=== PATIENT | female | born 1945 | race Asian ===

== ENCOUNTER 2022-06-10 01:06 | Inpatient (IN) | payer OTHER ==
[~2022-06-10] VITALS: Ht 149.9 cm; Wt 45.0 kg
[2022-06-10 01:41] LABS: GLUCOSE,POINT OF CARE 116 MG/DL (70-110)
[2022-06-10 01:42] LABS: HEMOGLOBIN 8.1 g/dL (12.0-16.0); MEAN CORPUSCULAR VOLUME 89 fL (80-100); RED CELL DISTRIBUTION WIDTH 14.4 % (11.5-14.5)
[2022-06-10 01:48] LABS: CALCIUM, TOTAL 9.9 mg/dL (8.8-10.5); CREATININE 1.35 mg/dL (0.60-1.30); POTASSIUM 4.3 mmol/L (3.5-5.1)
[2022-06-10 01:51] LABS: BASOPHILS % (AUTO) 0.7 % (0.0-2.0); EOSINOPHILS % (AUTO) 0.4 % (1.0-6.0); HEMATOCRIT 24.1 % (36-46); LYMPHOCYTES # (AUTO) 3.2 K/uL (1.0-4.8); LYMPHOCYTES % (AUTO) 33.4 % (22.0-44.0); MEAN CORPUSCULAR HEMOGLOBIN 29.8 pg (26.0-34.0); MEAN CORPUSCULAR HGB CONC 33.6 G/dL (31.0-37.0); MONOCYTES # (AUTO) 0.6 K/uL (0.1-1.0); MONOCYTES % (AUTO) 6.8 % (2.0-9.0); NEUTROPHILS # (AUTO) 5.6 K/uL (1.8-7.7); NEUTROPHILS % (AUTO) 58.7 % (40.0-70.0); PLATELET COUNT (AUTO) 548 K/uL (150-450); RED BLOOD CELL COUNT(AUTO) 2.72 MIL/uL (4.00-5.20)
[2022-06-10 01:56] LABS: LACTIC ACID 1.1 mmol/L (0.4-2.0)
[2022-06-10 01:58] LABS: COVID AG,FIA SOURCE NASAL SWAB
[2022-06-10 02:01] LABS: APPEARANCE,URINE HAZY (CLEAR); BILIRUBIN,URINE NEGATIVE (NEGATIVE); GLUCOSE, URINE (UA) NEGATIVE (NEGATIVE); KETONES,URINE NEGATIVE (NEGATIVE); LEUKOCYTE ESTERASE ,URINE LARGE (NEGATIVE); NITRATE,URINE NEGATIVE (NEGATIVE); OCCULT BLOOD,URINE NEGATIVE (NEGATIVE); PROTEIN,URINE 30-70 mg/dL (NEGATIVE); SPECIFIC GRAVITIY, URINE 1.034 (1.003-1.030); UROBILINOGEN,URINE <=1.0 mg/dL (<=1.0)
[2022-06-10 02:03] LABS: PROTHROMBIN TIME 10.9 SEC (9.4-11.6)
[2022-06-10 02:10] LABS: BACTERIA,URINE Few /HPF (None Seen); RBC,URINE 0-2 /HPF (0-2); SQUAMOUS EPITHELIAL CELL,UR Few /LPF (None Seen); WBC,URINE 26-50 /HPF (0-5); YEAST,URINE Moderate /HPF (None Seen)
[2022-06-10 02:16] LABS: ALBUMIN 2.6 g/dL (3.4-5.0); BILIRUBIN,TOTAL 0.3 mg/dL (0.1-1.0); TOTAL PROTEIN, SERUM 7.3 g/dL (6.4-8.2)
[2022-06-10] MEDS ORDERED: CefTRIAXone 1 GM/DEXTROSE 50 ML IV ONE (03:00)
[2022-06-10] MEDS ORDERED: NACL ISOOSM IV ONE (03:00)
[2022-06-10] MEDS ORDERED: FLUCONAZOLE IV ONE (03:00)
[2022-06-10] MEDS ORDERED: 0.9% SODIUM CHLORIDE 10 ML SYRINGE IVP PRN (03:00)
[2022-06-10] MEDS ORDERED: ACETAMINOPHEN 325 MG TABLET PO PRN ×2 (03:00→10:45)
[2022-06-10] MEDS ORDERED: SODIUM CHLORIDE 0.9% 1,000 ML IV ONE ×2 (03:00→10:45)
[2022-06-10 09:52] VITALS: BP 126/61
[2022-06-10] MEDS ORDERED: DEXTROSE 50%-WATER 25 GM/50 ML SYRINGE IVP PRN (10:45)
[2022-06-10] MEDS ORDERED: ONDANSETRON HCL 4 MG/2 ML VIAL IVP PRN (10:45)
[2022-06-10 11:30] LABS: GLUCOMETER DEV NAME(LOC) 6N.2B; GLUCOSE,POINT OF CARE 118 MG/DL (70-110)
[2022-06-10] MEDS ORDERED: DEXAMETHASONE SOD PHOS 4 MG/ML VIAL IVP ONE (12:00)
[2022-06-10] MEDS ORDERED: ROCURONIUM BROMIDE 10 MG/ML 5 ML VIAL IVP ONE (12:00)
[2022-06-10] MEDS ORDERED: LIDOCAINE/PF 2% 5 ML VIAL IM ONE (12:00)
[2022-06-10] MEDS ORDERED: PROPOFOL 1% 20 ML VIAL IVP ONE (12:00)
[2022-06-10] MEDS ORDERED: ONDANSETRON HCL 4 MG/2 ML VIAL IVP ONE (12:00)
[2022-06-10] MEDS ORDERED: APIXABAN 5 MG TABLET PEG SCH ×3 (13:45→21:00)
[2022-06-10 15:51] LABS: GLUCOMETER DEV NAME(LOC) 6N.1; GLUCOSE,POINT OF CARE 118 MG/DL (70-110)
[2022-06-10 16:02] LABS: HEMATOCRIT 22.3 % (36-46); HEMOGLOBIN 7.3 g/dL (12.0-16.0)
[2022-06-10 16:40] VITALS: BP 141/80
[2022-06-10] MEDS: PANTOPRAZOLE SODIUM 80 MG in SODIUM CHLORIDE 0.9% 100 ML IV SCH (18:17)
[2022-06-10 20:28] VITALS: BP 139/68
[2022-06-10] MEDS: DOCUSATE SODIUM 100 MG CAPSULE PO SCH (21:01)
[2022-06-10 21:51] LABS: GLUCOMETER DEV NAME(LOC) 5N.2C; GLUCOSE,POINT OF CARE 107 MG/DL (70-110)
[2022-06-10 23:07] VITALS: BP 135/65
[2022-06-11] VITALS (12 sets, daily range): BP systolic 124–167; BP diastolic 60–80
[2022-06-11 00:31] LABS: HEMATOCRIT 20.5 % (36-46); HEMOGLOBIN 6.9 g/dL (12.0-16.0)
[2022-06-11] MEDS ORDERED: SODIUM CHLORIDE 0.9% 250 ML IV ONE ×2 (00:33→06:33)
[2022-06-11] MEDS: PANTOPRAZOLE SODIUM 80 MG in SODIUM CHLORIDE 0.9% 100 ML IV SCH ×2 (01:52→11:15)
[2022-06-11] MEDS: CefTRIAXone 1 GM/DEXTROSE 50 ML IV SCH (02:23)
[2022-06-11] MEDS: FLUCONAZOLE 100 MG TABLET PO SCH ×2 (02:29→09:18)
[2022-06-11 07:27] LABS: BASOPHILS % (AUTO) 0.9 % (0.0-2.0); EOSINOPHILS % (AUTO) 1.3 % (1.0-6.0); HEMATOCRIT 24.1 % (36-46); HEMOGLOBIN 7.9 g/dL (12.0-16.0); LYMPHOCYTES # (AUTO) 2.2 K/uL (1.0-4.8); LYMPHOCYTES % (AUTO) 34.1 % (22.0-44.0); MEAN CORPUSCULAR HEMOGLOBIN 29.2 pg (26.0-34.0); MEAN CORPUSCULAR HGB CONC 32.9 G/dL (31.0-37.0); MEAN CORPUSCULAR VOLUME 89 fL (80-100); MONOCYTES # (AUTO) 0.4 K/uL (0.1-1.0); MONOCYTES % (AUTO) 6.8 % (2.0-9.0); NEUTROPHILS # (AUTO) 3.6 K/uL (1.8-7.7); NEUTROPHILS % (AUTO) 56.9 % (40.0-70.0); PLATELET COUNT (AUTO) 475 K/uL (150-450); RED BLOOD CELL COUNT(AUTO) 2.72 MIL/uL (4.00-5.20); RED CELL DISTRIBUTION WIDTH 16.5 % (11.5-14.5)
[2022-06-11 08:25] LABS: GLUCOMETER DEV NAME(LOC) 5N.1C; GLUCOSE,POINT OF CARE 107 MG/DL (70-110)
[2022-06-11] MEDS ORDERED: PANTOPRAZOLE SODIUM 40 MG/VIAL IVP SCH (09:00)
[2022-06-11] MEDS: ATORVASTATIN CALCIUM 20 MG TABLET PEG SCH (09:18)
[2022-06-11] MEDS: ASPIRIN 81 MG CHEWABLE TABLET PEG SCH (09:18)
[2022-06-11] MEDS: DOCUSATE SODIUM 100 MG CAPSULE PO SCH ×2 (09:18→21:00)
[2022-06-11 10:00] LABS: HEMATOCRIT 25.7 % (36-46); HEMOGLOBIN 8.4 g/dL (12.0-16.0)
[2022-06-11 10:01] LABS: GLUCOMETER DEV NAME(LOC) 5N.2C; GLUCOSE,POINT OF CARE 95 MG/DL (70-110)
[2022-06-11] MEDS ORDERED: SODIUM CHLORIDE 0.9% 1,000 ML ONE (10:39)
[2022-06-11] MEDS ORDERED: SODIUM CHLORIDE 0.9% 1,000 ML IV ONE (10:45)
[2022-06-11] MEDS ORDERED: MIDAZOLAM HCL 2 MG/2 ML VIAL ONE (10:53)
[2022-06-11] MEDS ORDERED: FentaNYL CITRATE PF 100 MCG/2 ML VIAL ONE (10:53)
[2022-06-11] MEDS ORDERED: NEOMYCIN/BACITRACIN/POLYMYXIN B OINTMENT PACKET TP ONE (11:25)
[2022-06-11] MEDS: PANTOPRAZOLE SODIUM 40 MG/VIAL IVP SCH (12:25)
[2022-06-11 14:50] LABS: HEMOGLOBIN 7.9 g/dL (12.0-16.0)
[2022-06-11 18:41] LABS: GLUCOMETER DEV NAME(LOC) 5N.1C; GLUCOSE,POINT OF CARE 74 MG/DL (70-110)
[2022-06-11 20:19] LABS: HEMATOCRIT 25.4 % (36-46); HEMOGLOBIN 8.3 g/dL (12.0-16.0)
[2022-06-11 22:21] LABS: GLUCOMETER DEV NAME(LOC) 5N.1C; GLUCOSE,POINT OF CARE 91 MG/DL (70-110)
[2022-06-12] VITALS (7 sets, daily range): BP systolic 136–160; BP diastolic 65–104
[2022-06-12 00:33] LABS: HEMATOCRIT 24.6 % (36-46)
[2022-06-12] MEDS: CefTRIAXone 1 GM/DEXTROSE 50 ML IV SCH (03:10)
[2022-06-12] MEDS: PANTOPRAZOLE SODIUM 40 MG/VIAL IVP SCH (07:55)
[2022-06-12] MEDS: ATORVASTATIN CALCIUM 20 MG TABLET PEG SCH (07:56)
[2022-06-12] MEDS: ASPIRIN 81 MG CHEWABLE TABLET PEG SCH (07:56)
[2022-06-12] MEDS: FLUCONAZOLE 100 MG TABLET PO SCH (07:56)
[2022-06-12] MEDS: DOCUSATE SODIUM 100 MG CAPSULE PO SCH ×2 (07:56→21:00)
[2022-06-12 08:11] LABS: GLUCOMETER DEV NAME(LOC) 5S.2C; GLUCOSE,POINT OF CARE 107 MG/DL (70-110)
[2022-06-12 10:39] LABS: HEMATOCRIT 24.6 % (36-46)
[2022-06-12] MEDS ORDERED: ALEN70TA65 PO (12:24)
[2022-06-12] MEDS ORDERED: INSNOV SQ (12:24)
[2022-06-12] MEDS ORDERED: BISA10SU11 PR (12:24)
[2022-06-12] MEDS ORDERED: ATOR40TA28 PEG (12:24)
[2022-06-12] MEDS ORDERED: SENN8.8S31 PEG (12:24)
[2022-06-12] MEDS ORDERED: MULT-248 PO (12:24)
[2022-06-12] MEDS ORDERED: AMLO2.5T96 PEG (12:24)
[2022-06-12] MEDS ORDERED: DOCU-350 PEG (12:24)
[2022-06-12] MEDS ORDERED: CALC-761 PEG (12:24)
[2022-06-12] MEDS ORDERED: NA P133E4 PR (12:24)
[2022-06-12 18:12] LABS: HEMOGLOBIN 8.1 g/dL (12.0-16.0)
[2022-06-12 20:41] LABS: GLUCOMETER DEV NAME(LOC) 5S.1B; GLUCOSE,POINT OF CARE 104 MG/DL (70-110)
[2022-06-13 01:31] LABS: HEMATOCRIT 24.9 % (36-46); HEMOGLOBIN 8.3 g/dL (12.0-16.0)
[2022-06-13] MEDS: CefTRIAXone 1 GM/DEXTROSE 50 ML IV SCH (02:56)
[2022-06-13] MEDS ORDERED: SODIUM CHLORIDE 0.9% 500 ML IV ONE (02:58)
[2022-06-13 03:06] LABS: GLUCOMETER DEV NAME(LOC) 5S.2C; GLUCOSE,POINT OF CARE 109 MG/DL (70-110)
[2022-06-13 03:32] VITALS: BP 144/81
[2022-06-13 05:41] LABS: GLUCOMETER DEV NAME(LOC) 5N.2C; GLUCOSE,POINT OF CARE 115 MG/DL (70-110)
[2022-06-13 06:12] LABS: GLUCOMETER DEV NAME(LOC) 5N.2C; GLUCOSE,POINT OF CARE 125 MG/DL (70-110)
[2022-06-13 07:11] VITALS: BP 140/79
[2022-06-13] MEDS: PANTOPRAZOLE SODIUM 40 MG/VIAL IVP SCH (08:26)
[2022-06-13] MEDS: DOCUSATE SODIUM 100 MG CAPSULE PO SCH (08:26)
[2022-06-13] MEDS: ATORVASTATIN CALCIUM 20 MG TABLET PEG SCH (08:26)
[2022-06-13] MEDS: ASPIRIN 81 MG CHEWABLE TABLET PEG SCH (08:26)
[2022-06-13] MEDS: FLUCONAZOLE 100 MG TABLET PO SCH (08:27)
[2022-06-13 11:17] VITALS: BP 160/85
[2022-06-13 16:04] VITALS: BP 156/84
[2022-06-14 06:12] LABS: GLUCOMETER DEV NAME(LOC) 5S.1B; GLUCOSE,POINT OF CARE 140 MG/DL (70-110)
== END 2022-06-13 16:20 | DRG 242 ==
LOC: EMS 01:10 → 6S 05:00 → 5S 15:46
PROVIDERS: ADMIT Internal Medicine; ATTEND Internal Medicine
PROC: 0DP68UZ Removal of Feeding Device from Stomach, Via Natural or Artificial Opening Endoscopic (ICD-10-PCS; 2022-06-11)
PROC: 30233N1 Transfusion of Nonautologous Red Blood Cells into Peripheral Vein, Percutaneous Approach (ICD-10-PCS; principal; 2022-06-11 11:10)
PROC: 0DH63UZ Insertion of Feeding Device into Stomach, Percutaneous Approach (ICD-10-PCS; 2022-06-11 11:10)
DX: K22.11 Ulcer of esophagus with bleeding (principal); K31.1 Adult hypertrophic pyloric stenosis; K25.4 Chronic or unspecified gastric ulcer with hemorrhage; D63.8 Anemia in other chronic diseases classified elsewhere; K94.23 Gastrostomy malfunction; N30.90 Cystitis, unspecified without hematuria; R47.01 Aphasia; F41.9 Anxiety disorder, unspecified; Z20.822 Contact with and (suspected) exposure to COVID-19; R13.10 Dysphagia, unspecified; E11.9 Type 2 diabetes mellitus without complications; I10 Essential (primary) hypertension; E78.00 Pure hypercholesterolemia, unspecified; Y83.8 Other surgical procedures as the cause of abnormal reaction of the patient, or of later complication, without mention of misadventure at the time of the procedure; Z86.73 Personal history of transient ischemic attack (TIA), and cerebral infarction without residual deficits; Y92.89 Other specified places as the place of occurrence of the external cause
CPT/HCPCS: 70450; 71045; 74176; 80053; 81001; 82550; 82962; 83605; 83880; 84145; 84484; 85014; 85018; 85025; 85610; 85730; 86850; 86900; 86901; 86923; 87040; 87086; 87186; 93005; 93970; 99285; C9113; J0696; J1100; J1450; J2250; J2405; J2704; J3010; J3490; J7030; J7040; J7050; P9016; 36415-L1; 36415-TC; Z7610